=== PATIENT | male | born 1970 | race Hispanic/Latino ===

== ENCOUNTER 2017-08-07 06:51 | Emergency (ER) | payer SELFPAY ==
[~2017-08-07] VITALS: Ht 167.6 cm; Wt 81.0 kg
[~2017-08-07 06:51] MED LIST: KEFLEX500 MG PO; NAPROSYN500 MG PO; NO; TORADOL PO; ULTRAM50 MG OR
[2017-08-07 07:50] LABS: HEMATOCRIT 45.5 % (39.0-50.0); HEMOGLOBIN 15.2 g/dl (14.0-18.0); IMMATURE GRANULOCYTES 0.3 % (0.0-1.0); MEAN CELL VOLUME 89.9 fL CALC (80.0-100.0); MEAN CORPUSCULAR HGB CONC 33.4 g/L CALC (32.0-36.0); NEUT# 8.72 thou/uL (1.82-7.42); RED BLOOD COUNT 5.06 mill/uL (4.70-6.10); RED CELL DISTRI WIDTH 12.6 % (11.5-15.5)
[2017-08-07 07:52] LABS: URINE BILIRUBIN - DIPSTICK NEGATIVE (NEGATIVE); URINE BLOOD DIPSTICK LARGE (NEGATIVE); URINE COLOR RED; URINE GLUCOSE - DIPSTICK NEGATIVE (NEGATIVE); URINE KETONE NEGATIVE (NEGATIVE); URINE LEUK ESTERASE NEGATIVE (NEGATIVE); URINE NITRITE - DIPSTICK NEGATIVE (Negative); URINE PH 5.5 (4.5-8.0); URINE PROTEIN - DIPSTICK TRACE mg/dL (NEG-TRACE); URINE UROBILINOGEN - DIPSTICK 0.2 E.U./dL (0.2)
[2017-08-07 07:54] LABS: URINE CLARITY TURBID; URINE RBC 50-100 RBC/hpf (0-5); URINE SQUAMOUS EPITHELIAL CELL FEW EPI/hpf (0-FEW)
[2017-08-07 08:01] LABS: ALBUMIN 4.8 g/dL (3.2-5.0); ALKALINE PHOSPHATASE 86 u/l (38-126); ANION GAP 16 (6-22 (CALC)); BILIRUBIN, TOTAL 0.5 mg/dL (0.0-1.4); BUN 21 mg/dL (9-20); BUN/CREATININE RATIO 22 (12-20 (CALC)); CALCIUM 10.3 mg/dL (8.4-10.2); CARBON DIOXIDE 27 mmol/l (22-30); CHLORIDE 103 mmol/l (95-108); GFR > 60 ML/MIN (>=60 (CALC)); GFR FOR AFR.AMER. > 60 ML/MIN (>=60 (CALC)); GLUCOSE 111 mg/dL (75-110); POTASSIUM 4.6 mmol/l (3.5-5.1); SGOT/AST 37 u/l (17-59); SGPT/ALT 61 u/l (21-72); SODIUM 141 mmol/l (137-146); TOTAL PROTEIN 8.3 g/dL (6.3-8.2)
[2017-08-07] MEDS ORDERED: LORTAB 5/3255 MG PO (09:44)
[2017-08-07] MEDS ORDERED: TAMSULOSIN0.4 MG PO (09:44)
[2017-08-07] MEDS ORDERED: CIPROFLOXACN500 MG PO (09:44)
[2017-08-07 09:46] VITALS: BP 123/82
== END 2017-08-07 09:59 | disposition home or self-care (01) | DRG 694 ==
LOC: ED 06:51
PROVIDERS: Emergency Medicine
DX: N20.0 Calculus of kidney (principal)

== ENCOUNTER 2023-04-01 00:12 | Emergency (ER) | payer BC ==
[~2023-04-01] VITALS: Ht 167.6 cm; Wt 81.8 kg
[~2023-04-01 00:12] MED LIST changes: +CIPROFLOXACN500 MG PO; +LORTAB 5/3255 MG PO; +TAMSULOSIN0.4 MG PO
[2023-04-01 01:10] VITALS: BP 144/82
== END 2023-04-01 01:10 | disposition home or self-care (01) | DRG 914 ==
LOC: ED 00:12
PROC: 0HCFXZZ Extirpation of Matter from Right Hand Skin, External Approach (ICD-10-PCS; principal; 2023-04-01)
DX: S61.041A Puncture wound with foreign body of right thumb without damage to nail, initial encounter (principal); W26.8XXA Contact with other sharp object(s), not elsewhere classified, initial encounter; Y93.89 Activity, other specified

== ENCOUNTER 2024-10-03 12:23 | Emergency (ER) | payer SELFPAY ==
[~2024-10-03] VITALS: Ht 167.6 cm; Wt 86.0 kg
[2024-10-03] VITALS (9 sets, daily range): BP systolic 126–134; BP diastolic 81–94
[2024-10-03] MEDS ORDERED: ASPIRIN 81 MG/TAB PO ONE (12:40)
[2024-10-03 12:56] LABS: BASO% 0.6 % (0-3); EOS% 5.3 % (0-8); HEMATOCRIT 44.7 % (39.0-50.0); HEMOGLOBIN 14.3 g/dl (14.0-18.0); IMMATURE GRANULOCYTES 0.1 % (0.0-5.0); LYMPH% 31.8 % (15-41); MEAN CELL VOLUME 92.4 fL CALC (80.0-100.0); MEAN CORPUSCULAR HGB 29.5 pG CALC (26.0-32.0); MONO% 11.6 % (2-13); NEUT# 4.98 thou/uL (1.82-7.42); NEUT% 50.6 % (42-76); RED BLOOD COUNT 4.84 mill/uL (4.70-6.10); RED CELL DISTRI WIDTH 12.9 % (11.5-15.5)
[2024-10-03 13:12] LABS: ALBUMIN 4.4 g/dL (3.2-5.0); ANION GAP 13 (6-22 (CALC)); BUN 21 mg/dL (9-20); BUN/CREATININE RATIO 20 (12-20 (CALC)); CARBON DIOXIDE 27 mmol/l (22-30); CHLORIDE 105 mmol/l (95-108); CREATININE 1.1 mg/dL (0.7-1.3); ESTIMATED GFR 80 ML/MIN (>=90 (CALC)); POTASSIUM 4.6 mmol/l (3.5-5.1); SODIUM 140 mmol/l (137-146); TOTAL PROTEIN 8.8 g/dL (6.3-8.2)
[2024-10-03 13:17] LABS: ALKALINE PHOSPHATASE 190 u/l (38-126); BILIRUBIN, TOTAL 0.8 mg/dL (0.2-1.3); SGOT/AST 87 u/l (17-59)
[2024-10-03] MEDS ORDERED: KETOROLAC TROMETHAMINE 30 MG/ML SDV IV ONE (14:30)
[2024-10-03] MEDS ORDERED: MOTRIN800 MG PO (16:35)
== END 2024-10-03 16:47 | disposition home or self-care (01) | DRG 195 ==
LOC: ED 12:23
PROVIDERS: Emergency Medicine
DX: R09.1 Pleurisy (principal)
CPT/HCPCS: Q9967